=== PATIENT | male | born 1965 | race Caucasian/White ===

== ENCOUNTER 2022-03-27 09:36 | Emergency (ER) | payer BC, SELFPAY ==
--- NOTE | ~2022-03-27 | CT_ITS ---
EXAMINATION: CT brain wo con INDICATION: Dizziness COMPARISON: None TECHNIQUE: Standard unenhanced head CT. The dose-length product (DLP) was 605.33 mGy-cm. The mA was a djusted according to patient size. Iterative reconstruction technique was employed. FINDINGS: There is no intracranial hemorrhage, acute infarction, or abnormal mass lesion. The ventric les are normal. There is no abnormal mass effect or midline shift. The aguilera-white matter differentiat ion is normal. The basal cisterns are patent. The orbits are normal. There is a small right mastoid e ffusion. IMPRESSION: 1. No acute intracranial abnormality. 2. Small right mastoid effusion. Reviewed, dictated and finalized at location B. ASSESSOR
--- NOTE | ~2022-03-27 | XR_ITS ---
EXAMINATION: XR chest 1V INDICATION: Dizziness TECHNIQUE: AP view of the chest is obtained. COMPARISON: None available FINDINGS: The lungs are free of acute opacities. No pleural effusion or pneumothorax. The cardiomedia stinal silhouette is normal. The visualized bones and soft tissues are unremarkable. IMPRESSION: 1. No acute cardiopulmonary abnormality. Reviewed, dictated and finalized at location B. N BLEACHER
[2022-03-27 09:39] VITALS: BP 142/103; PULSE 74; RESP 18; TEMP 36.8; O2SAT 100
[2022-03-27 09:48] VITALS: PULSE 70
--- NOTE | 2022-03-27 09:48 | ED.WEAKNESS ---
HPI - Weakness General Chief complaint: Weakness Stated complaint: feeling faint Time Seen by Provider: 03/27/22 09:47 Source: patient and family Mode of arrival: ambulatory Limitations: no limitations History of Present Illness HPI Narrative: Patient presents with vertigo, started while working out in his basement yesterday, everything started spinning with nausea. He denies any focal neurodeficit. Worse with head movement or body movement, better laying still. Patient had similar symptoms in August 2021 and about 10 years ago. Patient denies any fever, chills, vomiting, chest pain, shortness of breath, back pain or headache. Patient is healthy otherwise, takes medication for GERD, does not smoke or drink or uses drugs. Related Data Allergies Allergy/AdvReac Type Severity Reaction Status Date / Time No Known Allergies Allergy Verified 03/27/22 11:31 Review of Systems Review of Systems: All systems reviewed & are unremarkable except as noted in HPI and below Exam Narrative: General appearance: Well-developed, well-nourished Skin: Normal color Head: Normocephalic, nontraumatic Eyes: Clear conjunctiva ENT: Oropharynx normal, ears normal, nose normal Neck: Supple, nontender Chest and respiratory: Airway patent, no respiratory distress, no accessory muscle use Heart: Regular rate/rhythm Abdomen: Soft, nontender, no organomegaly, quiet bowel sounds Vascular: Normal peripheral pulses, normal capillary refill. Musculoskeletal: Normal range of motion, nontender back Neurologic: Alert and oriented ?3, COMMUNICATIONS TECHNICIAN is normal as tested, no gross motor deficit Course Vital Signs Vital signs: Vital Signs Temperature 36.8 C 03/27/22 09:39 Pulse Rate 74 03/27/22 09:39 Respiratory Rate 18 03/27/22 09:39 Blood Pressure 142/103 H 03/27/22 09:39 Pulse Oximetry 100 03/27/22 09:39 Oxygen Delivery Room Air 03/27/22 09:39 Temperature 36.8 C 03/27/22 09:39 Pulse Rate 65 03/27/22 12:26 Respiratory Rate 16 03/27/22 12:26 Blood Pressure 149/93 H 03/27/22 12:26 Pulse Oximetry 98 03/27/22 12:26 Oxygen Delivery Room Air 03/27/22 09:39 MDM - Weakness MDM Narrative Medical decision making narrative: Patient is 56 years old white male presented to the ED with vertigo-like symptoms. Patient had similar symptoms numerous of times in the past last one was August 2021. Everything explains with any movement, associated with slight nausea, Benign positional vertigo is my concern. Physical examination is unremarkable except dizziness get worse with any movement. Labs, CT head, chest x-ray, EKG ordered Work-up showed no significant abnormality to explain patient condition. CT head showed small right mastoid effusion which I believe has nothing to do with his symptoms. Patient does not have any hearing abnormality, fever, chills, headache or pain at that area. Patient received Valium, Antivert and Zofran in the ER with good results. Patient is able to stand up and walk without credentialing assistant or dizziness. The pt was discharged to home.the pt,s condition upon discharge was fair,education was provided to the pt in reference to the final impression,discharge study results,treatment,prognosis and need for follow up . Differential Diagnosis Differential diagnosis: Likely anemia, dehydration and other (Vertigo, electrolyte imbalance) Lab Data 03/27/22 10:33 03/27/22 10:33 Labs: Lab Results 03/27/22 03/27/22 03/27/22 Range/Units 10:33 10:33 10:33 WBC 8.4 (4.5-10.0) K/mm3 RBC 4.87 (4.6-6.20) M/mm3 Hgb 14.3 (14.0-18.0) g/dL Hct 41.8 L (42.0-52.0) % MCV 85.8 (80-100) fl MCH 29.4 (26-34) pg M
--- NOTE | 2022-03-27 09:50 | ECG_ITS ---
Measurements Intervals [place] Rate: 63 P: 44 TN: 189 QRS: 41 QRSD: 97 T: 8 QT: 419 QTc: 431 Interpretive Statements SINUS RHYTHM POSSIBLE LEFT ATRIAL ENLARGEMENT [-0.1mV P-WAVE IN V1/V2] NONSPECIFIC ST SEGMENT AND T-WAVE ABNORMALITY ABNORMAL ECG NO PREVIOUS ECG AVAILABLE FOR COMPARISON Electronically Signed On 03-27-2022 13:13:32 STEAM SHOVEL ENGINEER by Jerome Ellison M.D.
[2022-03-27 10:41] LABS: Basophils Percent Auto 0.4 % (0.2-1.2); Eosinophils Absolute Auto 0.1 K/mm3 (0-0.3); Eosinophils Percent Auto 0.8 % (0-4.4); Hematocrit 41.8 % (42.0-52.0); Hemoglobin 14.3 g/dL (14.0-18.0); Immature Granulocyte Absolute 0.04 K/mm3 (0.00-0.031); Immature Granulocyte Percent A 0.5 % (0-0.5); Lymphocytes Percent Auto 16.7 % (18.3-44.2); Mean Corpuscular HGB Conc 34.2 g/dl (32-36); Mean Corpuscular Hemoglobin 29.4 pg (26-34); Mean Corpuscular Volume 85.8 fl (80-100); Mean Platelet Volume 9.9 fl (7.4-10.4); Monocytes Absolute Auto 0.6 K/mm3 (0.1-0.6); Monocytes Percent Auto 6.6 % (2.6-8.5); Neutrophils Absolute Auto 6.3 K/mm3 (1.3-6.7); Platelet Count Result 309 k/mm3 (150-375); Red Blood Count 4.87 M/mm3 (4.6-6.20); Red Cell Distribution Width 13.1 % (11.5-14.5); White Blood Count 8.4 K/mm3 (4.5-10.0)
[2022-03-27 10:56] LABS: Alanine Aminotransferase 29 U/L (6-50); Albumin Level 4.2 g/dL (3.5-5.1); Alkaline Phosphatase 88 U/L (38-126); Anion Gap 3 mmol/L (8-16); Aspartate Amino Transferase 27 U/L (17-59); Bilirubin,Total 0.7 mg/dL (0.2-1.3); Blood Urea Nitrogen 17 mg/dL (9-20); Calcium 9.8 mg/dL (8.4-10.2); Carbon Dioxide 25 mmol/L (22-30); Chloride 105 mmol/L (98-107); Estimated CRCL calculation 71 ml/min; Estimated Glomerular Filt Rate > 60; Glucose 98 mg/dL (65-110); Potassium 4.2 mmol/L (3.4-5.0); Sodium 133 mmol/L (137-145)
[2022-03-27 10:57] LABS: Ethanol < 10 mg/dL (<10)
[2022-03-27] MEDS: MECLIZINE HCL 25 MG TABLET PO (11:41)
[2022-03-27] MEDS: ONDANSETRON INJ 4 MG/2 ML VIAL IV PUSH (11:41)
[2022-03-27] MEDS: diazePAM INJ (*CRX) 10 MG/2 ML SYRINGE 5 MG IV PUSH (11:42)
[2022-03-27 12:07] LABS: Appearance Urine Clear (Clear); Bilirubin Urine Negative (Negative); Blood Urine Negative (Negative); Color Urine Yellow (Yellow); Glucose Urine UA Negative (Negative); Ketones Urine 1+ mg/dL (Negative); Leukocyte Esterase Ur Negative LEU/UL (Negative); Nitrate Urine Negative (Negative); Protein Urine Negative (Negative); Specific Grav Ur 1.015 (1.001-1.035); Urobilinogen Urine 0.2 mg/dL (<2.0); pH Urine 8.5 (5.0-9.0)
[2022-03-27 12:18] LABS: Mucus Urine Rare /lpf; WBC Urine 0-3 /hpf
[2022-03-27 12:25] LABS: Add Urine Microscopic? YES
[2022-03-27 12:26] VITALS: BP 149/93; PULSE 65; RESP 16; O2SAT 98
[2022-03-27 13:15] LABS: Amphetamine Screen Urine Negative (Negative); Barbiturate Screen Urine Negative (Negative); Benzodiazepines Screen Urine Negative (Negative); Cannabinoid Screen Urine Positive (Negative); Cocaine Screen Urine Negative (Negative); Methadone Screen Urine Negative (Negative); Opiate Screen Urine Negative (Negative); Phencyclidine Screen Urine Negative (Negative)
[2022-03-27 13:24] VITALS: BP 133/97; PULSE 87; RESP 16; O2SAT 100
== END 2022-03-27 13:26 | disposition home or self-care (01) ==
PROVIDERS: Emergency Provider Emergency Medicine
DX: R42 Dizziness and giddiness (principal); R94.31 Abnormal electrocardiogram [ECG] [EKG]
CPT/HCPCS: 36415; 70450; 71045; 80053; 80307; 81001; 84443; 85025; 93005; 96374; 96375; 99284; A9270; J2405; J3360